=== PATIENT | male | born 1990 | race Caucasian/White ===

== ENCOUNTER 2023-03-30 14:44 | Emergency (ER) | payer OTHER ==
--- NOTE | 2023-03-30 15:15 | ED ---
General Adult HPI - General Source: patient, RN notes reviewed Mode of arrival: ambulatory Limitations: no limitations <Dwayne Severino - Last Filed: 03/30/23 15:14> <Abby Sampson - Last Filed: 03/31/23 00:20> - General Stated complaint: Left sided facial weakness, sacred heart Time Seen by Provider: 03/30/23 15:14 - History of Present Illness Initial comments: 33-year-old male presents emergency Department with chief complaint of left- sided facial paralysis. Patient states this started 3 days ago. He states she's had this happen the past and was told is from herpes. Patient states that he is currently at [facility]. Patient denies any upper or lower extremity weakness denies any current headache he states he cannot close his left I cannot raise presents left eyebrow (Dwayne Severino) - Related Data Previous Rx's Medication Instructions Recorded Acyclovir [Zovirax] 400 mg PO 5XD 7 Days #35 tablet 03/30/23 Acyclovir [Zovirax] 400 mg PO 5XD 7 Days #35 tablet 03/30/23 predniSONE [Deltasone] 60 mg PO DAILY 7 Days #21 tab 03/30/23 predniSONE [Deltasone] 60 mg PO DAILY 7 Days #21 tab 03/30/23 Allergies Allergy/AdvReac Type Severity Reaction Status Date / Time No Known Allergies Allergy Verified 03/30/23 15:26 Review of Systems ROS Other: All systems not noted in ROS Statement are negative. <Dwayne Severino - Last Filed: 03/30/23 15:14> ROS Other: All systems not noted in ROS Statement are negative. <Abby Sampson - Last Filed: 03/31/23 00:20> ROS Statement: Those systems with pertinent positive or pertinent negative responses have been documented in the HPI. General Exam <Dwayne Severino - Last Filed: 03/30/23 15:14> Limitations: no limitations General appearance: alert, in no apparent distress Head exam: Present: atraumatic, normocephalic, normal inspection Eye exam: Present: PERRL, EOMI, other (Patient cannot fully close the left eye) ENT exam: Present: TM's normal bilaterally Neck exam: Present: normal inspection, full ROM Respiratory exam: Present: normal lung sounds bilaterally. Absent: respiratory distress, wheezes, rales, rhonchi, stridor Cardiovascular Exam: Present: regular rate, normal rhythm, normal heart sounds. Absent: systolic murmur, diastolic murmur, rubs, gallop, clicks Neurological exam: Present: alert, oriented X3 Expanded Cranial nerves: Facial Palsy without Forehead Movement: Abnormal Left (Patient is unable to move the left side of the face including the left eyebrow) Eye Response: (4) open spontaneously Motor Response: (6) obeys commands Verbal Response: (5) oriented Psychiatric exam: Present: normal affect, normal mood Skin exam: Present: warm, dry, intact, normal color. Absent: rash <Abby Sampson - Last Filed: 03/31/23 00:20> - General Exam Comments Initial Comments: Visual Physical Exam Vital signs reviewed General: Well-appearing, nontoxic, no acute distress. Head: Normocephalic, atraumatic Eyes: PERRLA, EOMI ENT: Airway patent Chest: Nonlabored breathing Skin: No visual rash, normal skin tone Neuro: Alert and oriented 3 Musculoskeletal: No gross abnormalities (Dwayne Severino) Course Vital Signs 03/30/23 03/30/23 15:21 16:51 Temperature 99.3 F 98.9 F Pulse Rate 74 72 Respiratory 16 18 Rate Blood Pressure 122/73 121/80 O2 Sat by Pulse 97 97 Oximetry Medical Decision Making <Dwayne Severino - Last Filed: 03/30/23 15:14> <Abby Sampson - Last Filed: 03/31/23 00:20> - Medical Decision Making I performed the quick note portion of this chart signed Dwayne Severino PA-C (Dwayne Severino) Was pt. sent in by a medical professional or institution ([facility], [facility], urgent care, hospital, or jail...) When possible be specific @ -No Did you speak to anyone other than the patient for history (EMS, parent, family, police, friend...)? What history was obtained from this source @ -No Did you review nursing and triage notes (agree or disagree)? Why? @ -I reviewed and agree with nursing and triage notes Were old charts reviewed (outside hosp., previous admission, EMS record, old EKG, old radiological studies, urgent care reports/EKG's, jail records)? Report findings @ -No old charts were reviewed Differential Diagnosis (chest pain, altered mental status, abdominal pain women, abdominal pain men, vaginal bleeding, weakness, fever, dyspnea, syncope, headache, dizziness, GI bleed, back pain, seizure, CVA, palpatations, mental health, musculoskeletal)? @ -Differential includes Lilly's palsy, CVA, TIA, this is not an all-inclusive list EKG interpreted by me (3pts min.). @ -As above X-rays interpreted by me (1pt min.). @ -None done CT interpreted by me (1pt min.). @ -None done U/S interpreted by me (1pt. min.). @ -None done What testing was considered but not performed or refused? (CT, X-rays, U/S, labs)? Why? @ -None What meds were considered but not given or refused? Why? @ -None Did you discuss the management of the patient with other professionals (professionals i.e. , PA, STRAP ST[employer]ER, lab, RT, psych nurse, manager social work, offset press operator, teacher, staff weapons officer, case finisher)? Give summary @ -No Was smoking cessation discussed for >3mins.? @ -No Was critical care preformed (if so, how long)? @ -No Were there social determinants of health that impacted care today? How? (Homelessness, low income, unemployed, alcoholism, drug addiction, transportation, low edu. Level, literacy, decrease access to med. care, penitentiary, rehab)? @ -No Was there de-escalation of care discussed even if they declined (Discuss DNR or withdrawal of care, Hospice)? DNR status @ -No What co-morbidities impacted this encounter? (DM, HTN, Smoking, COPD, CAD, Cancer, CVA, ARF, Chemo, Hep., AIDS, mental health diagnosis, sleep apnea, morbid obesity)? @ -None Was patient admitted / discharged? Hospital course, mention meds given and route, prescriptions, significant lab abnormalities, going to OR and other pertinent info. @ -33-year-old male presenting with chief complaint of inability to move the left side of his face ongoing for 3 days. Patient is unable to fully close the eye or lifts the left eyebrow. Patient currently has URI like symptoms. 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 Patient is started on prednisone and acyclovir.Follow-up with PCP. Report back to ER with any new or worsening symptoms. Discussed return parameters and answered all questions. Patient conveyed verbal understanding and agreed to the plan. I discussed this case in detail with my attending Dr. Metzger Undiagnosed new problem with uncertain prognosis? @ -No Drug Therapy requiring intensive monitoring for toxicity (Heparin, Nitro, Insulin, Cardizem)? @ -No Were any procedures done? @ -No Diagnosis/symptom? @ -bells palsy Acute, or Chronic, or Acute on Chronic? @ -Acute Uncomplicated (without systemic symptoms) or Complicated (systemic symptoms)? @ -Uncomplicated Side effects of treatment? @ -No Exacerbation, Progression, or Severe Exacerbation? @ -No Poses a threat to life or bodily function? How? (Chest pain, USA, MD, pneumonia, PE, COPD, DKA, ARF, appy, cholecystitis, CVA, Diverticulitis, Homicidal, Suicidal, threat to staff... and all critical care pts) @ -No (Abby Sampson) Disposition <Dwayne Severino - Last Filed: 03/30/23 15:14> Is patient prescribed a controlled substance at d/c from ED?: No Time of Disposition: 16:44 <Abby Sampson - Last Filed: 03/31/23 00:20> Clinical Impression: Lilly's palsy Disposition: HOME SELF-CARE Condition: Good Instructions (If sedation given, give patient instructions): Lilly Palsy (ED) Additional Instructions: Follow-up with PCP. Report back to ER with any new or worsening symptoms. Take medication as prescribed. Prescriptions: predniSONE [Deltasone] 60 mg PO DAILY 7 Days #21 tab predniSONE [Deltasone] 60 mg PO DAILY 7 Days #21 tab Acyclovir [Zovirax] 400 mg PO 5XD 7 Days #35 tablet Acyclovir [Zovirax] 400 mg PO 5XD 7 Days #35 tablet Referrals: Nonstaff,Physician [REFERRING] - 1-2 days
[2023-03-30 17:00] VITALS: BP 121/80; PULSE 72; RESP 18; TEMP 98.9
== END 2023-03-30 17:08 | disposition home or self-care (01) ==
LOC: EC 14:44
DX: G51.0 Bell's palsy (principal)
CPT/HCPCS: 99284